=== PATIENT | male | born 1970 | race Caucasian/White ===

== ENCOUNTER 2020-11-29 12:31 | Emergency (ER) | payer MEDICAID ==
[~2020-11-29] VITALS: Ht 167.6 cm; Wt 99.3 kg
[2020-11-29 12:50] VITALS: BP 108/72
[2020-11-29 13:22] VITALS: BP 108/72
--- NOTE | 2020-11-29 13:23 | NUR ---
PATIENT ASSESSED AND DISCHARGED BY NELSON BRIDGES, NO NURSING INTERVENTIONS PERFORMED Patient discharged with v/s stable. Written and verbal after care instructions given and explained. Patient verbalized understanding. Ambulatory with steady gait. All questions addressed prior to discharge. Advised to follow up with PMD.
== END 2020-11-29 13:23 | disposition home or self-care (01) ==
LOC: MED 12:31
DX: S01.81XD Laceration without foreign body of other part of head, subsequent encounter (principal); X58.XXXD Exposure to other specified factors, subsequent encounter
CPT/HCPCS: 99281